=== PATIENT | female | born 1995 | race Caucasian/White ===

== ENCOUNTER 2016-11-26 20:26 | Emergency (ER) | payer MEDICAID, OTHER ==
[2016-11-26 20:31] VITALS: TEMP 98.8; BMI 26.2
[2016-11-26 21:00] LABS: LEUKOCYTES/URINE 3+ (NEGATIVE); NITRITE/URINE POS (NEGATIVE); URINE OCCULT BLOOD 3+ (NEG/TRACE)
--- NOTE | 2016-11-26 21:01 | EDPRACDOC ---
<Omaira Miranda N - Last Filed: 11/26/16 21:18> - General Information Information Source: Patient Mode Of Arrival: Car - History of Present Illness HPI: PT PRESENTS WITH SUDDEN ONSET OF INTENSE VAGINAL PAIN THAT OCCURRED WHEN SHE WOKE UP AROUND 1999. PT STATES THE PAIN IS SHARP, STABBING PAIN, THAT WORSENS WHEN SHE URINATES. DENIES FEVER, CHILLS, NAUSEA, VOMITING. 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 Urinary Pain Location: Reports: None Symptom Onset: Reports: Sudden Pain Severity: Moderate Pain Quality: Reports: Sharp, Stabbing History of: Reports: None : No Oral Intake: Normal Urinary Output: Normal Associated Signs and Symptoms: Reports: None <Robson Perezrina W - Last Filed: 11/26/16 22:15> - General Information Chief Complaint: Female Urogenital Problems Stated Complaint: VAGINAL PAIN Time Seen by Provider: 11/26/16 20:40 Home Medications: Home Medications Vits W-Ca,Fe,FA(<1Mg) [] 1 tab PO QHS 10/07/16 Hydrocodone Bit/Acetaminophen [Lortab 5/325] 1 - 2 tab PO Q4H PRN #30 tab Ibuprofen Tablet [Motrin] 800 mg PO Q6-8H PRN #30 tab 10/08/16 Metronidazole [Flagyl] 500 mg PO BID #14 tab 10/08/16 Ciprofloxacin HCl [Cipro] 500 mg PO BID #20 tab 11/26/16 Hydrocodone Bit/Acetaminophen [Hydrocodon-Acetaminophen 5-325] 1 - 2 tab PO Q6H PRN #7 tab 11/26/16 Phenazopyridine HCl [Pyridium] 200 mg PO TID #6 tablet 11/26/16 Allergies/Adverse Reactions: Allergies Allergy/AdvReac Type Severity Reaction Status Date / Time Sulfa (Sulfonamide Allergy Intermediate Rash-Genera Verified 11/26/16 20:31 Antibiotics) [facility] ED Past Medical History - History Reviewed Yes Nurses notes reviewed and agree except as marked - Patient Medical History GI/ History: Reports: Urinary Tract Infection (3 MONTHS AGO) Psychological History: Reports: Bipolar Disorder. Denies: Depression, Anxiety, Substance Use Disorder Systemic History: Denies: Cancer, Anemia, Lupus Surgical History: Reports: Appendectomy, Cholecystectomy, Tonsillectomy/ Adnoidectomy - Family Medical History Reports: Hypertension, Diabetes, Cancer, Stroke, Cardiac Disorders - Social Medical History Smoking Status: Heavy tobacco smoker (5 or more cigarettes/day or daily pipe/ cigar) Social History: Denies: Amphetamine Use, Barbiturate Use, Benzodiazipine Use, Cocaine Use, Heroin Use, Marijuana Use, Methadone Use, MDMA (Ecstasy) Use, Substance Use Disorder <Robson Perezrina W - Last Filed: 11/26/16 22:15> EDM Review of Systems - Review of Systems ROS Negative Except as Marked: Yes All systems reviewed and were negative except as marked <ChrisKellie W - Last Filed: 11/26/16 22:15> - Physical Exam Last recorded Vital Signs: Last Vital Signs Temp 98.8 F 11/26/16 20:28 Pulse 109 11/26/16 20:28 Resp 20 11/26/16 20:28 BP 138/71 11/26/16 20:28 Pulse Ox 98 11/26/16 20:28 Oxygen Pulse Oxygen Saturation 98 O2 Device Room Air Oxygen Flow Rate Fraction of Inspired Oxygen ( FIO2) <Omaira Miranda N - Last Filed: 11/26/16 21:18> - Physical Exam Constitutional: Alert (PT IN OBVIOUS PAIN) Oriented to: Time, Person, Place Last recorded Vital Signs: Last Vital Signs Temp 98.8 F 11/26/16 20:28 Pulse 109 11/26/16 20:28 Resp 20 11/26/16 20:28 BP 138/71 11/26/16 20:28 Pulse Ox 98 11/26/16 20:28 Oxygen Pulse Oxygen Saturation 98 O2 Device Room Air Oxygen Flow Rate Fraction of Inspired Oxygen ( FIO2) - HEENT Head: Normal ( normocephalic) Eye Exam: Normal (PERRL, EOMI, Sclera white) Oropharynx: Normal (Pharynx:Moist without exudate,Gums-no swelling) Nose: No Symptoms Reported (septum midline) Neck: Normal (FROM, trachea at midline) - Respiratory/Cardiovascular Respiratory: Normal - CTA (BBS clear to auscultation without adventitious sounds ) Cardiovascular: Tachycardia - GI Auscultation: Normal (NABS) Palpation: Normal (Soft,No rebound or guarding, non distended) Tenderness: Non tender Lira's Sign: Negative Rectal Exam: Deferred - Bladder: Normal External: Normal Vagina: Normal Cervix: Normal. negative: Open Uterus: Normal size Adnexa: Bilateral: Tender (CENTER) - Musculoskeletal Back: Normal (Non-Tender) Extremities: Normal (Normal tone, Pulses 2+ No cyanosis or edema, FROM) - Integumentary Skin: Normal, Warm, Dry Lymphatics: Normal (no adenopathy) - Neurologic Memory Impaired: Normal Motor Function: Normal (Normal tone, Pulses 2+ No cyanosis or edema, FROM) Cranial Nerve: Normal (CN II-X11 intact sensation, strength 5/5) Cerebellar: Normal Mood Description: Normal Perception: Normal <Kellie Perez - Last Filed: 11/26/16 22:15> - Results Urine Color Blood-tinged 11/26/16 20:40 Urine Clarity Cldy 11/26/16 20:40 Urine pH 8.0 (5.0-8.0) 11/26/16 20:40 Ur Specific Tye 1.005 11/26/16 20:40 Urine Protein 1+ (NEG/TRACE) H 11/26/16 20:40 Urine Glucose (UA) Neg (NEGATIVE) 11/26/16 20:40 Urine Ketones Neg (NEGATIVE) 11/26/16 20:40 Urine Occult Blood 3+ (NEG/TRACE) H 11/26/16 20:40 Urine Nitrite Pos (NEGATIVE) H 11/26/16 20:40 Urine Bilirubin Neg (NEGATIVE) 11/26/16 20:40 Urine Urobilinogen 4 MG/DL (0-1) H 11/26/16 20:40 Ur Leukocyte Esterase 3+ (NEGATIVE) H 11/26/16 20:40 Urine RBC Tntc (0-5) H 11/26/16 20:40 Urine WBC Tntc (0-5) H 11/26/16 20:40 Urine WBC Clumps Present (NONE) H 11/26/16 20:40 Ur Epithelial Cells 2+ 11/26/16 20:40 Urine Bacteria 1+ (NEG/FEW) H 11/26/16 20:40 Urine Test Neg (NEGATIVE) 11/26/16 20:40 Microbiology 11/26/16 21:05 VENTURA Preparation - Final Vaginal 11/26/16 21:05 Trichomonas Wet Mount - Final Vaginal Lab Results 11/26/16 11/26/16 20:40 20:40 Urine Color Blood-tinged Urine Clarity Cldy Urine pH 8.0 Ur Specific Tye 1.005 Urine Protein 1+ H Urine Glucose (UA) Neg Urine Ketones Neg Urine Occult Blood 3+ H Urine Nitrite Pos H Urine Bilirubin Neg Urine Urobilinogen 4 H Ur Leukocyte Esterase 3+ H Urine RBC Tntc H Urine WBC Tntc H Urine WBC Clumps Present H Ur Epithelial Cells 2+ Urine Bacteria 1+ H Urine Test Neg - Additional Information 4 CT OF CHEST OR ABD/PELVIS IN PAST SEVERAL YEARS: ALL WNL. CT RADIATION NOT WARRANTED TODAY. <Omaira Miranda - Last Filed: 11/26/16 21:18> - Differential Diagnosis UTI - Results 11/26/16 21:20 11/26/16 21:20 <Kellie Perez - Last Filed: 11/26/16 22:15> <Omaira Miranda - Last Filed: 11/26/16 21:18> Decision Time to Discharge: 22:15 - Departure Disposition: Home Education/Counseling Given To: Patient Education/Counseling Given Regarding: Diagnosis, Treatment, Prognosis, Follow Up <Kellie Perez - Last Filed: 11/26/16 22:15> - Departure Condition: Stable Final Diagnosis: Cystitis Instructions: Pelvic Pain in Women (ED) Referrals: Angel Mariee MD [Staff Physician] - One Week Prescriptions: Ciprofloxacin HCl [Cipro] 500 mg PO BID #20 tab Hydrocodone Bit/Acetaminophen [Hydrocodon-Acetaminophen 5-325] 1 - 2 tab PO Q6H PRN #7 tab PRN Reason: Pain Phenazopyridine HCl [Pyridium] 200 mg PO TID #6 tablet Additional Instructions: INCREASE FLUID INTAKE. FOLLOW UP WITH PRIMARY CARE PROVIDER NEXT WEEK. TAKE ALL ANTIBIOTICS PRESCRIBED. RETURN TO THE ED FOR WORSENING SYMPTOMS OR CONCERNS.
[2016-11-26 21:05] LABS: RBC/URINE TNTC (0-5); WBC/URINE TNTC (0-5)
[2016-11-26] MEDS ORDERED: CEFTRIAXONE 1 GM VIAL IM ONE (21:18)
[2016-11-26] MEDS ORDERED: PHENAZOPYRIDINE 100 MG TAB PO ONE (21:20)
[2016-11-26] MEDS ORDERED: DIAZEPAM 5 MG TAB PO ONE (21:20)
[2016-11-26 21:25] LABS: AUTOMATED BASOPHIL 0.4 % (0-2); AUTOMATED EOSINOPHIL 1.8 % (0-5); AUTOMATED LYMPH 16.1 % (17-44); AUTOMATED NEUTROPHIL 74.7 % (45-76); MPV 9.1 fL (7.4-10.4)
[2016-11-26 21:35] LABS: BLOOD UREA NITROGEN 11 MG/DL (7-17); CALC CORRECTED 9.6 MG/DL (8.4-10.2); CALCIUM 9.1 MG/DL (8.4-10.2); CALCULATED OSMOLALITY 267 MOs/Kg (270-290); CHLORIDE 104 mEq/L (98-107); GLUCOSE 105 MG/DL (70-99); SODIUM LEVEL 139 mEq/L (137-146); TOTAL PROTEIN 6.5 G/DL (6.3-8.2)
[2016-11-26] MEDS ORDERED: LIDOCAINE 1% 2 ML (METHYLPARABEN FREE) ONE (21:51)
--- NOTE | 2016-11-26 22:11 | DIRPT ---
CLINICAL DATA: Right lower quadrant pain for 1 day. History of miscarriage in October 2016. EXAM: TRANSABDOMINAL AND TRANSVAGINAL ULTRASOUND OF PELVIS DOPPLER ULTRASOUND OF OVARIES TECHNIQUE: Both transabdominal and transvaginal ultrasound examinations of the pelvis were performed. Transabdominal technique was performed for global imaging of the pelvis including uterus, ovaries, adnexal regions, and pelvic cul-de-sac. It was necessary to proceed with endovaginal exam following the transabdominal exam to visualize the the uterus. Color and duplex Doppler ultrasound was utilized to evaluate blood flow to the ovaries. COMPARISON: 09/12/2016 FINDINGS: Uterus Measurements: 9.4 x 5.8 x 6.5 cm. There is an anterior intramural fundal myometrial mass which measures 3.1 x 3.2 x 3.2 cm, and demonstrates markedly heterogeneous echogenicity. Endometrium Thickness: 8.2 mm. Normal echogenicity. Right ovary Measurements: 3.1 x 1.9 x 3.0 cm. Normal appearance/no adnexal mass. Left ovary Measurements: 2.7 x 1.5 x 2.9 cm. Normal appearance/no adnexal mass. Pulsed Doppler evaluation of both ovaries demonstrates normal low-resistance arterial and venous waveforms. Other findings No abnormal free fluid. IMPRESSION: Anterior fundal intramural heterogeneous in echogenicity solid uterine mass. Uterine fibroids are somewhat unusual at patient's age, and therefore close follow-up, or surgical consult is recommended. Normal appearance of the ovaries. Electronically Signed By: Jim Mike M.D. On: 11/26/2016 22:09
[2016-11-26 22:37] VITALS: BP 116/49; PULSE 92
[2016-11-30 07:38] LABS: CHLAMY BY NUCLEIC ACID AMP Negative (Negative)
[2016-11-30 15:09] LABS: GC BY NUCLEIC ACID AMP Negative (Negative)
== END 2016-11-26 22:40 | disposition home or self-care (01) ==
LOC: ED 20:26
DX: N30.90 Cystitis, unspecified without hematuria (principal)
CPT/HCPCS: 36415; 76830; 76856; 80053; 81001; 81025; 85025; 87210; 87220; 87491; 87591; 93975; 96372; 99283; J0696; J2001; J3490